=== PATIENT | male | born 1985 | race Caucasian/White ===

== ENCOUNTER 2018-10-10 | Emergency (ER) | payer OTHER, MEDICAID ==
--- NOTE | 2018-10-10 00:30 | C.PDOC ---
History Of Present Illness Patient splashed with hot oil while cooking in restaurant. happened yesterday. FROM of hand, good capilary refill., There is some lymphangitis towards the axilla Time Seen by Provider: 10/10/18 00:30 Chief Complaint (Nursing): Burn History Per: Patient History/Exam Limitations: no limitations Injury Occurred (Timing): Days Ago: (1) Type Of Burn (Context): Hot Liquid (oil) Burn Descrption: 1st: Wrist, 2nd: Hand Severity: Mild Pain Scale Rating Of: 3 Associated Symptoms: denies: SOB Recent travel outside of the [place]: No Additional History Per: Patient Past Medical History Reviewed: Historical Data, Nursing Documentation, Vital Signs Vital Signs: Last Vital Signs Temp 97.5 F L 10/10/18 00:08 Pulse 75 10/10/18 00:08 Resp 20 10/10/18 00:08 BP 135/79 10/10/18 00:08 Pulse Ox 100 10/10/18 00:08 Primary Care Provider: Non [facility] Provider, - Medical History PMH: Depression Surgical History: Appendectomy Family History: States: No Known Family Hx - Social History Hx Alcohol Use: Yes Hx Substance Use: No - Immunization History Hx Tetanus Toxoid Vaccination: No Hx Influenza Vaccination: No Hx Pneumococcal Vaccination: No Review Of Systems Skin: Positive for: Other (2x3cm hypothenar area with 1 and 2nd degree burn, covered with some whitish cream) Psych: Negative for: Anxiety Physical Exam - Physical Exam Appears: Non-toxic, No Acute Distress Skin: Other (2x3 cm area of 1&2nd degree burn, lymphangitic srythema towards axila) Respiratory: No Rales, No Rhonchi, No Wheezing Extremity: Tenderness (left hand) Neurological/Psych: Oriented x3 Gait: Steady ED Course And Treatment - Laboratory Results Result Diagrams: 10/10/18 01:10 10/10/18 01:10 O2 Sat by Pulse Oximetry: 100 Pulse Ox Interpretation: Normal Reevaluation Time: 01:37 Reassessment Condition: Improved Disposition Counseled Patient/Family Regarding: Studies Performed, Diagnosis, Need For Followup, Rx Given - Disposition Referrals: [facility] [Outside] [facility] [Outside] [facility] [Outside] Disposition: HOME/ ROUTINE Disposition Time: 00:30 Condition: FAIR Additional Instructions: Please return if symtoms recur, or you have high fever, chills Prescriptions: Bacitracin OINT 1 applic TP TID #1 tube Cephalexin [cephalexin] 500 mg PO TID #21 cap Instructions: Skin Parra Forms: [facility] (Slovenian) - Clinical Impression Clinical Impression: Burn, hand, first degree, Lymphangitis
[2018-10-10] MEDS ORDERED: Sodium Chloride 0.9% 1,000 ML IV ONE (00:49)
[2018-10-10] MEDS ORDERED: Bacitracin 500 Units/gm Oint Foilpak UD ONE (00:52)
[2018-10-10] MEDS ORDERED: Sodium Chloride 0.9% 1,000 ML ONE (01:08)
[2018-10-10 01:18] LABS: BASO % 0.8 % (0.0-2.0); EOS # 0.3 K/uL (0.0-0.7); EOS % 4.5 % (0.0-4.0); HEMOGLOBIN 11.3 g/dL (12.0-18.0); LYMPH # 1.8 K/uL (1.0-4.3); MEAN CELL VOLUME 73.2 fL (80.0-94.0); MEAN CORPUSCULAR HEMOGLOBIN 23.7 pg (27.0-31.0); MEAN CORPUSCULAR HGB CONC 32.3 g/dL (33.0-37.0); MEAN PLATELET VOLUME 9.8 fL (7.2-11.7); MONO # 0.6 K/uL (0.0-0.8); MONO % 10.2 % (0.0-10.0); NEUT # 3.1 K/uL (1.8-7.0); NEUT % 53.5 % (50.0-75.0); RBC 4.79 Mil/uL (4.40-5.90); RED CELL DISTRIBUTION WIDTH 14.5 % (11.5-14.5); WHITE BLOOD COUNT 5.7 K/uL (4.8-10.8)
[2018-10-10] MEDS ORDERED: Bacitracin Ointment 30 GM TUBE TOP STA (01:21)
[2018-10-10 01:25] LABS: BLOOD UREA NITROGEN 16 mg/dL (9-20); CALCIUM 8.9 mg/dl (8.6-10.4); GFR NON-AFRICAN AMERICAN > 60
[2018-10-10 01:48] VITALS: BP 120/80; PULSE 80; RESP 14; TEMP 97.8; O2SAT 98
== END 2018-10-10 01:48 | disposition home or self-care (01) ==
LOC: C.ER
DX: T23.202A Burn of second degree of left hand, unspecified site, initial encounter (principal); X10.2XXA Contact with fats and cooking oils, initial encounter; Y93.G3 Activity, cooking and baking; I89.1 Lymphangitis
CPT/HCPCS: 80048; 85025; 96365; 96375; 99284; J0690; J1885; J7030